=== PATIENT | female | born 1985 | race Caucasian/White ===

== ENCOUNTER 2019-11-15 09:27 | Emergency (ER) | payer OTHER ==
[~2019-11-15] VITALS: Ht 170.2 cm; Wt 81.7 kg
[2019-11-15] MEDS ORDERED: WELLBUTRIN 75 M75 M1 PO (09:30)
[2019-11-15] MEDS ORDERED: DOXYCYCLINE 10100 MG PO (13:29)
[2019-11-15] MEDS ORDERED: NORCO 5-325 TA1 EAC2 PO (13:29)
[2019-11-15 13:53] VITALS: BP 122/79
== END 2019-11-15 13:54 | disposition home or self-care (01) ==
LOC: ER 09:27
DX: L02.412 Cutaneous abscess of left axilla (principal); F32.9 Major depressive disorder, single episode, unspecified; Z79.899 Other long term (current) drug therapy; Z88.1 Allergy status to other antibiotic agents; Z88.2 Allergy status to sulfonamides